=== PATIENT | female | born 1995 | race African-American/Black ===

== ENCOUNTER 2019-04-23 17:49 | Emergency (ER) | payer OTHER ==
--- NOTE | 2019-04-23 19:17 | ED ---
Throat Pain/Nasal Congestion - HPI Summary HPI Summary: 23-year-old female presents with epistaxis today. States that the past week and half she's been having sinus congestion. today the sinus congestion started getting better. States she was given medication by [facility] included pseudoephedrine and Flonase. She states she's been taking the Flonase every day except for today. States that when she blew her nose some blood came out twice today. She states that it was oozing but then stopped. She is not on any blood thinners. Has no medical conditions. No fevers. Sore throat has resolved. She admits occasional cough. No chest pain or shortness of breath. No headache or sinus pressure. - History of Current Complaint Chief Complaint: EDUpperRespComplaint Time Seen by Provider: 04/23/19 19:03 - Allergies/Home Medications Allergies/Adverse Reactions: Allergies Allergy/AdvReac Type Severity Reaction Status Date / Time No Known Allergies Allergy Verified 04/23/19 17:53 PMH/Surg Hx/FS Hx/Imm Hx Endocrine/Hematology History: Denies: Hx Anticoagulant Therapy Respiratory History: Denies: Hx Asthma Infectious Disease History: No Infectious Disease History: Denies: Traveled Outside the [place] in Last 30 Days - Family History Known Family History: Positive: Non-Contributory - Social History Alcohol Use: Occasionally Substance Use Type: Reports: None Smoking Status (MU): Never Smoked Tobacco Review of Systems Negative: Fever Positive: Epistaxis, Nasal Discharge Negative: Chest Pain Positive: Cough. Negative: Shortness Of Breath All Other Systems Reviewed And Are Negative: Yes Physical Exam Triage Information Reviewed: Yes Vital Signs On Initial Exam: Initial Vitals Temp Pulse Resp BP Pulse Ox 99.4 F 90 18 168/118 100 04/23/19 17:52 04/23/19 17:52 04/23/19 17:52 04/23/19 17:52 04/23/19 17:52 Vital Signs Reviewed: Yes Appearance: Positive: Well-Appearing Skin: Positive: Warm, Dry Head/Face: Positive: Normal Head/Face Inspection Eyes: Positive: Normal, EOMI, MAGGIE, Conjunctiva Clear ENT: Positive: Normal ENT inspection, Pharynx normal, Nasal congestion, TMs normal, Other - red irritated nasal mucous on right. Negative: Sinus tenderness Neck: Positive: Supple, Nontender, No Lymphadenopathy Respiratory/Lung Sounds: Positive: Clear to Auscultation, Breath Sounds Present Cardiovascular: Positive: Normal, RRR Musculoskeletal: Positive: Normal Neurological: Positive: Normal Psychiatric: Positive: Normal Diagnostics - Vital Signs Vital Signs Temp Pulse Resp BP Pulse Ox 04/23/19 17:52 99.4 F 90 18 168/118 100 - Laboratory Lab Statement: Any lab studies that have been ordered have been reviewed, and results considered in the medical decision making process. EENT Course/Dx - Course Course Of Treatment: 23-year-old female presents with epistaxis today. States that the past week and half she's been having sinus congestion. today the sinus congestion started getting better. States she was given medication by [facility] included pseudoephedrine and Flonase. She states she's been taking the Flonase every day except for today. States that when she blew her nose some blood came out twice today. She states that it was oozing but then stopped. She is not on any blood thinners. Has no medical conditions. No fevers. Sore throat that resolved. She admits occasional cough. No chest pain or shortness of breath. No headache or sinus pressure. On exam no sinus tenderness noted. Has irritated mucosal on the right naris with no active bleeding. Discuss antibiotics first supportivative and patient wants to treat supportively. Discuss Flonase could be causing nosebleed and to stop the Flonase. Told to use nasal saline in the nose to protect mucous. Patient understands and agrees the plan. - Differential Diagnoses Differential Diagnoses: Epistaxis, Sinusitis, URI/Bronchitis - Diagnoses Provider Diagnoses: Epistaxis, Sinus congestion Discharge ED - Sign-Out/Discharge Documenting (check all that apply): Patient Departure Patient Received Moderate/Deep Sedation with Procedure: No - Discharge Plan Condition: Good Disposition: HOME Patient Education Materials: Nosebleed (ED) Referrals: [facility] - [facility]lvaro TENORIO [Primary Care Provider] - Additional Instructions: use nasal saline in nose to prevent nosebleeds stop flonase Follow up with álvaro if no improvement if get nosebleed apply direct pressure for 20 mins Return to ED if develop any new or worsening symptoms - Billing Disposition and Condition Condition: GOOD Disposition: Home
[2019-04-23 19:22] VITALS: BP 141/94
== END 2019-04-23 19:21 | disposition home or self-care (01) ==
LOC: ED 17:49
DX: R04.0 Epistaxis (principal); R09.81 Nasal congestion; R05 Cough
CPT/HCPCS: 99281

== ENCOUNTER 2019-05-05 20:00 | Emergency (ER) | payer OTHER ==
[2019-05-05 20:42] VITALS: BP 152/97
--- NOTE | 2019-05-05 21:18 | UC ---
Respiratory Complaint HPI - HPI Summary HPI Summary: WOKE UP THIS MORNING WITH SORE THROAT, HEADACHE, COUGH, NASAL CONGESTION AND FATIGUE. HAS FELT ON AND OFF FEVERISH TODAY BUT NO DOCUMENTED FEVER. NO NAUSEA /VOMITING. HAD SIMILAR SYMPTOMS ABOUT 3 WEEKS AGO THAT RESOLVED FULLY. FELT WELL FOR ABOUT 4 DAYS BUT THEN WOKE UP TODAY WITH SYMPTOMS. - History of Current Complaint Chief Complaint: UCRespiratory Stated Complaint: SORE THROAT Hx Obtained From: Patient Hx Last Menstrual Period: last week Onset/Duration: Gradual Onset, Lasting Hours, Still Present Timing: Constant Severity Initially: Moderate Severity Currently: Moderate Pain Intensity: 3 Pain Scale Used: 0-10 Numeric Character: Cough: Nonproductive Aggravating Factors: Nothing Alleviating Factors: Nothing Associated Signs And Symptoms: Positive: Fever, URI, Nasal Congestion. Negative : Dyspnea, Wheezing - Allergies/Home Medications Allergies/Adverse Reactions: Allergies Allergy/AdvReac Type Severity Reaction Status Date / Time No Known Allergies Allergy Verified 05/05/19 20:38 PMH/Surg Hx/FS Hx/Imm Hx Neurological History: Migraine Other History Of: Negative For: Anticoagulant Therapy - Surgical History Surgical History: None - Family History Known Family History: Positive: Non-Contributory - Social History Alcohol Use: Occasionally Substance Use Type: None Smoking Status (MU): Never Smoked Tobacco Review of Systems All Other Systems Reviewed And Are Negative: Yes Constitutional: Positive: Fever, Fatigue ENT: Positive: Sore Throat, Nasal Discharge, Sinus Congestion Respiratory: Positive: Cough Cardiovascular: Positive: Negative Gastrointestinal: Positive: Negative Genitourinary: Positive: Negative Musculoskeletal: Negative: Arthralgia, Myalgia Neurological: Positive: Headache Physical Exam Triage Information Reviewed: Yes Appearance: Well-Appearing, No Pain Distress, Well-Nourished Vital Signs: Initial Vital Signs Temp 99.8 F 05/05/19 20:39 Pulse 104 05/05/19 20:39 Resp 18 05/05/19 20:39 BP 152/97 05/05/19 20:39 Pulse Ox 97 05/05/19 20:39 Laboratory Tests 05/05/19 20:34 Group A Strep Rapid Negative Vital Signs Reviewed: Yes Eyes: Positive: Conjunctiva Clear ENT: Positive: Hearing grossly normal, Pharynx normal, TMs normal Neck: Positive: Supple, Nontender, No Lymphadenopathy Respiratory Exam: Normal Cardiovascular: Positive: Tachycardia Abdomen Description: Positive: Soft Musculoskeletal: Positive: No Edema Neurological: Positive: Alert Psychological: Positive: Age Appropriate Behavior Skin: Negative: Rashes Respiratory Course/Dx - Course Course Of Treatment: PATIENT'S SYMPTOMS TODAY ARE LIKELY DUE TO A NEW ILLNESS THAT IS UNRELATED TO HER PREVIOUS ILLNESS SHE STATES SHE WAS COMPLETELY RECOVERED FOR SEVERAL DAYS BEFORE WAKING UP THIS MORNING FEELING SICK AGAIN. STREP TEST NEGATIVE. PATIENT'S LUNGS ARE CLEAR. NO EAR INFECTION. NO SUGGESTION OF ANY BACTERIAL INFECTION AT PRESENT. NO INDICATION FOR ANTIBIOTICS. WILL GIVE COUGH MEDICINE AND HAVE RECOMMENDED OTC AFRIN FOR NASAL CONGESTION. IBUPROFEN NEEDED FOR FEVERS AND HEADACHE. SEEK FOLLOW-UP IF SHE IS NOT IMPROVING OVER THE NEXT 1-2 WEEKS. - Differential Dx/Diagnosis Provider Diagnosis: Upper respiratory infection Discharge ED - Sign-Out/Discharge Documenting (check all that apply): Patient Departure All imaging exams completed and their final reports reviewed: No Studies - Discharge Plan Condition: Stable Disposition: HOME Prescriptions: Benzonatate CAP* [Tessalon CAP*] 1 - 2 cap PO TID PRN #30 cap PRN Reason: Cough Patient Education Materials: Upper Respiratory Infection (ED) Referrals: [facility] [Provider Group] - If Needed [facility] [Outside] - If Needed Additional Instructions: STREP TEST NEGATIVE. YOU HAVE LIKELY PICKED UP A NEW ILLNESS THAT IS INDEPENDENT OF YOUR PREVIOUS ILLNESS WHICH PER YOUR REPORT FULLY RESOLVED. YOUR CURRENT SYMPTOMS ARE LIKELY VIRALLY MEDIATED AND SHOULD RESOLVE ON THEIR OWN WITH TIME. NO INDICATION FOR ANTIBIOTICS AT PRESENT. REST, HYDRATE, OTC MEDS NEEDED. WILL TREAT WITH COUGH MEDICINE. SEEK FOLLOW-UP IF YOU ARE NOT IMPROVING OVER THE NEXT 1-2 WEEKS. USE OTC AFRIN FOR NASAL CONGESTION. 2 SPRAYS IN EACH NOSTRIL ONCE DAILY BEFORE BED NEEDED. DO NOT USE FOR MORE THAN 5 DAYS IN A ROW TO PREVENT DEVELOPING REBOUND CONGESTION. IF YOU WOULD PREFER TO ESTABLISH WITH A LOCAL PCP FOR YOUR HEALTH CONCERNS CALL THE NUMBER BELOW FOR ASSISTANCE WITH THIS. An additional resource available to assist in finding the appropriate physician for your health care needs is [facility] ([place]). You may contact them by calling [phone]. - Billing Disposition and Condition Condition: STABLE Disposition: Home
--- NOTE | 2019-05-08 11:16 | UC ---
- Progress Note Progress Note: Received phone call from Dr. Bhatti regarding patient. She spoke with patient who is reporting progressive worsening of her symptoms despite symptomatic care. She was initially seen by Dr. Bhatti on 05/05/2019. Dr. Bhatti feels that with the progressively worsening symptoms that antibiotics are warranted at this time and requests that a prescription for azithromycin 500 mg x 5 days be sent into the pharmacy for the patient to start. Prescription sent to patient's preferred pharmacy. Dr. Bhatti to notify patient of plan of care. Course/Dx - Diagnoses Provider Diagnoses: Upper respiratory infection Discharge ED - Sign-Out/Discharge Documenting (check all that apply): Post-Discharge Follow Up All imaging exams completed and their final reports reviewed: No Studies - Discharge Plan Condition: Stable Disposition: HOME Prescriptions: Azithromycin 500 mg PO DAILY #5 tab Benzonatate CAP* [Tessalon CAP*] 1 - 2 cap PO TID PRN #30 cap PRN Reason: Cough Patient Education Materials: Upper Respiratory Infection (ED) Forms: *School Release [facility] - [facility] Ne[facility] [Outside] - If Needed Additional Instructions: STREP TEST NEGATIVE. YOU HAVE LIKELY PICKED UP A NEW ILLNESS THAT IS INDEPENDENT OF YOUR PREVIOUS ILLNESS WHICH PER YOUR REPORT FULLY RESOLVED. YOUR CURRENT SYMPTOMS ARE LIKELY VIRALLY MEDIATED AND SHOULD RESOLVE ON THEIR OWN WITH TIME. NO INDICATION FOR ANTIBIOTICS AT PRESENT. REST, HYDRATE, OTC MEDS NEEDED. WILL TREAT WITH COUGH MEDICINE. SEEK FOLLOW-UP IF YOU ARE NOT IMPROVING OVER THE NEXT 1-2 WEEKS. USE OTC AFRIN FOR NASAL CONGESTION. 2 SPRAYS IN EACH NOSTRIL ONCE DAILY BEFORE BED NEEDED. DO NOT USE FOR MORE THAN 5 DAYS IN A ROW TO PREVENT DEVELOPING REBOUND CONGESTION. IF YOU WOULD PREFER TO ESTABLISH WITH A LOCAL PCP FOR YOUR HEALTH CONCERNS CALL THE NUMBER BELOW FOR ASSISTANCE WITH THIS. An additional resource available to assist in finding the appropriate physician for your health care needs is the [facility] ([place]). You may contact them by calling [phone]. - Billing Disposition and Condition Condition: STABLE Disposition: Home
== END 2019-05-05 21:03 | disposition home or self-care (01) ==
LOC: UCEAST 20:00
DX: J06.9 Acute upper respiratory infection, unspecified (principal)
CPT/HCPCS: 87651; 99211; G0463